=== PATIENT | male | born 1960 | race African-American/Black ===

== ENCOUNTER 2021-02-26 09:52 | Day surgery (SDC) | payer OTHER ==
[~2021-02-26] VITALS: Ht 172.7 cm; Wt 134.5 kg
[2021-02-26 10:57] VITALS: Ht 172.7 cm; Wt 134.5 kg
[2021-02-26 11:13] LABS: BASOPHILS 0.7 % (0-2); EOSINOPHILS 1.1 % (0-7); HEMATOCRIT 44.3 % (42.0-54.0); HEMOGLOBIN 14.8 g/dL (13.5-17.5); LYMPHOCYTES 18.7 % (15-50); MCH 28.8 pg (26.0-34.0); MCHC 33.5 g/dL (31.0-37.0); MEAN PLATELET VOLUME 8.1 fL (7.4-10.4); MONOCYTES 12.3 % (2-11); NEUTROPHILS 67.2 % (40-80); PLATELET COUNT 215 10x3/uL (130-400); RBC 5.15 10x6/uL (4.20-6.10); RDW 14.9 % (11.5-14.5); WBC 7.7 10x3/uL (4.8-10.8)
[2021-02-26] MEDS ORDERED: VASOTEC20 MG PO (11:20)
[2021-02-26] MEDS ORDERED: ASPIRIN EC81 MG PO (11:20)
[2021-02-26] MEDS ORDERED: GLUCOPHAGE500 MG PO (11:21)
[2021-02-26] MEDS ORDERED: METOPROLOL TART50 MG PO (11:22)
[2021-02-26] MEDS ORDERED: NORVASC10 MG PO (11:22)
[2021-02-26] MEDS ORDERED: GLUCOTROL XL 1010 MG PO (11:23)
[2021-02-26] MEDS ORDERED: CARDURA4 MG PO (11:23)
[2021-02-26] MEDS ORDERED: FUROSEMIDE20 MG PO (11:23)
[2021-02-26 11:24] LABS: ANION GAP 12.9 mmol/L (8-16); CALCIUM 10.1 mg/dL (8.5-10.1); CARBON DIOXIDE 24.9 mmol/L (21.0-32.0); CREATININE - SERUM 3.6 mg/dL (0.6-1.3); POTASSIUM - SERUM 4.8 mmol/L (3.5-5.1)
[2021-02-26] MEDS ORDERED: ZOCOR40 MG PO (11:24)
[2021-02-26] MEDS ORDERED: NOVOLIN 70/30 110 ML SC ×3 (11:27)
[2021-02-26] MEDS ORDERED: HUMULIN 70100 UNIT/1 SC (11:29)
--- NOTE | 2021-02-26 11:50 | NUR ---
1140 DR. HUNT NOTIFIED OF PT'S. READINESS.
[2021-02-26 12:18] LABS: INR 1.1 (0.85-1.17); PROTIME 13.1 SECONDS (11.6-15.0)
--- NOTE | 2021-02-26 13:03 | NUR ---
1303 DILATION TO 60
[2021-02-26 13:23] LABS: APTT 27.9 SECONDS (22.8-39.4)
--- NOTE | 2021-02-26 14:12 | NUR ---
1400 DR. MARILEE ALANIZ.
--- NOTE | 2021-02-27 13:07 | HP ---
PATIENT: DAYRON OLMEDO MEDICAL RECORD: [id number] ACCOUNT: [id number] LOCATION:[facility] : 56 ADMISSION DATE: 02/26/21 PCP: No PCP HISTORY AND PHYSICAL EXAMINATION HISTORY OF PRESENT ILLNESS: The patient has several different issues. He has had hematochezia. Fecal occult blood positivity times 3. Dysphagia as well. He does have some reflux, which has been managed with calcium based oral products. He has also had some problems with intermittent hematuria. I am going to plan for EGD, possible esophageal dilation, possible colonoscopy. The risks, possible complications, and alternatives of the procedure were explained to the patient. He elects to proceed. PAST MEDICAL AND SURGICAL HISTORY: Hypertension, insulin-dependent diabetes mellitus. PHYSICAL EXAMINATION: GENERAL: The patient does not appear acutely ill. He does appear chronically ill. VITAL SIGNS: Reviewed. EARS: External ears appear normal. EYES: Extraocular movements are intact. NECK: Trachea is midline. CHEST: No intercostal retractions. PULMONARY: Nonlabored. No stridor. Expiratory wheezes are present. IMPRESSION: 1. Fecal occult blood positivity. 2. Hematochezia. 3. Dysphagia. PLAN: EGD, probable esophageal dilation and colonoscopy. TRANSINT:[id number] Voice Confirmation ID: [id number] DOCUMENT ID: [id number] cc: Allan Piña NP, ADAN Randle MD at 1307 CC: [id number] DICTATION DATE: 02/26/21 1253 BOARD MACHINE SET UP OPERATOR: 02/27/[address] [facility] 02/26/21 [place] [id number] [place] [id number]
--- NOTE | 2021-04-01 10:06 | OP ---
PATIENT NAME: DAYRON OLMEDO MEDICAL RECORD: [id number] :56 LOCATION:[facility] ADMISSION DATE: SURGEON: KIRAN HUNT MD DATE OF OPERATION: 02/26/2021 PREOPERATIVE DIAGNOSES: 1. Hematochezia. 2. Fecal occult blood positivity times 3. 3. Dysphagia. 4. Gastroesophageal reflux. POSTOPERATIVE DIAGNOSES: 1. Hematochezia. 2. Fecal occult blood positivity times 3. 3. Dysphagia. 4. Gastroesophageal reflux. 5. Possible polyp on the ileocecal valve. 6. Two colorectal polyps. 7. Duodenal ulcers with exudate. PROCEDURES: 1. Esophagogastroduodenoscopy with antral biopsies to rule out H. pylori. 2. Esophageal dilation to 60-Arabic with a wsbtqor-ljd-beuruums balloon. 3. Total colonoscopy to cecum. 4. Hot biopsy forceps polypectomies x2. 5. Cold endoscopic biopsy on the ileocecal valve. SURGEON: Kiran Hunt MD ASSISTANT PROFESSOR OF ANTHROPOLOGY: None. BLOOD LOSS: Minimal. ANESTHESIA: IV sedation. COMPLICATIONS: None. The risks, possible complications, and alternatives of the procedure were explained to the patient. He elects to proceed. ENDOSCOPIC COURSE: The patient was conveyed to endoscopy suite electively on 02/26/2021. IV sedation was induced by the anesthesia staff. A bite block was inserted. A gastroscope was inserted into the mouth. It was advanced easily into the hypopharynx. The esophagus was easily intubated as were the stomach and duodenum. Upon withdrawal, retroflexed and angulus views were obtained. Antral biopsies were obtained. I then advanced uwmhbcn-vwi-iartaopn balloon. I sequentially dilated the entire length of the esophagus to 60-Arabic. I then re-endoscoped the patient's esophagus and stomach. There had been no evidence of false passage or perforation. The endoscope was then withdrawn under direct vision. The patient was turned 180 degrees and placed in the Spicer position. A digital rectal examination was performed. A colonoscope was inserted through the anus. It was easily advanced to the cecum. There was what might represent a flat polyp on the ileocecal valve. Cold endoscopic biopsies were obtained of this OPERATIVE REPORT [id number] DAYRON OLMEDO lesion. I slowly withdrew the endoscope. The pullback was greater than a 16-minute pullback. A combination of normal imaging and narrow band imaging were utilized. There were 2 polyps. These were both sessile polyps and the polyps ranged, one was 5 mm and the other was a centimeter. These were removed in their entirety utilizing hot biopsy forceps polypectomy technique. A retroflex view was obtained in the rectum. I then unretroflexed the scope and removed it under direct vision. If one of these polyps is a glandular polyp, I would plan for the patient's next colonoscopy to take place in 3 years. TRANSINT:[id number] Voice Confirmation ID: [id number] DOCUMENT ID: [id number] KIRAN HUNT MD at 1006 CC: [id number] DICTATION DATE: 04/01/21 0652 CHIEF ANALYTICS OFFICER: 04/01/21 0810 [facility] 02/26/[address] [id number]
== END 2021-02-26 14:50 | disposition home or self-care (01) ==
LOC: D.OPS 09:52
PROVIDERS: Anesthesiology; ATTEND Surgery
DX: K92.1 Melena (principal); R13.10 Dysphagia, unspecified; K21.9 Gastro-esophageal reflux disease without esophagitis; K63.5 Polyp of colon; K26.9 Duodenal ulcer, unspecified as acute or chronic, without hemorrhage or perforation; I10 Essential (primary) hypertension; E11.9 Type 2 diabetes mellitus without complications; Z79.4 Long term (current) use of insulin